=== PATIENT | male | born 1935 | race Caucasian/White ===

== ENCOUNTER 2018-01-18 13:46 | Observation (INO) | payer MEDICARE ==
[2018-01-18 14:17] LABS: #Basophils 0.1 thou/uL (0.0-0.2); #Eosinphils 0.1 thou/uL (0.0-0.7); #Lymphocytes 1.5 thou/uL (1.20-3.40); #Monocytes 0.7 thou/uL (0.11-0.59); #Neutrophils 3.6 thou/uL (1.40-6.50); %Eosinophils 1.1 % (0.0-10.0); %Lymphocytes 25.4 % (21.0-51.0); %Monocytes 11.4 % (0.0-10.0); %Neutrophils 61.1 % (42.0-75.0); Hemoglobin 15.3 g/dL (14.0-18.0); Mean Corpuscular HGB CONC 35.2 g/dL (32.0-36.0); Mean Corpuscular Volume 90.8 fL (78.0-98.0); Mean Platelet Volume 7.7 fL (7.4-10.4); Platelet Count 134 thou/uL (130-400); RBC Distribution Width 12.1 % (11.5-14.5); Red Blood Cell (RBC) Count 4.78 mill/uL (4.70-6.10); White Blood Cell (WBC) Count 5.9 thou/uL (4.8-10.8)
[2018-01-18 14:37] LABS: ALT (SGPT) 21 U/L (8-55); AST (SGOT) 16 U/L (5-34); Albumin 3.9 g/dL (3.4-4.8); Alkaline Phosphatase 87 U/L (40-150); Anion Gap 13 mmol/L (10-20); BUN (Urea Nitrogen) 22 mg/dL (8.4-25.7); Bilirubin, Total 0.4 mg/dL (0.2-1.2); Calc. Creatinine Clearance 0 mL/min (70-130); Calcium 9.2 mg/dL (7.8-10.44); Carbon Dioxide 23 mmol/L (23-31); Chloride 107 mmol/L (98-107); Estimated GFR-MDRD 85; Globulin 2.6 g/dL (2.4-3.5); Glucose 96 mg/dL (83-110); Potassium 4.6 mmol/L (3.5-5.1); Protein, Total 6.5 g/dL (5.8-8.1); Sodium 138 mmol/L (136-145)
--- NOTE | 2018-01-18 15:47 | CT ---
CT BRAIN WITHOUT CONTRAST: HISTORY: Left-sided weakness and numbness. FINDINGS: No evidence of infarct, hemorrhage, midline shift, or abnormal extraaxial fluid collections is seen. The ventricular size is appropriate and the basilar cisterns are patent. The bony calvarium is inta ct. There is mucosal disease in the right maxillary sinus. IMPRESSION: No CT evidence of acute intracranial process. POS: [facility]
[2018-01-18] MEDS ORDERED: Ondansetron HCl/PF 4 MG/2 ML Vial IVP PRN ×2 (16:34→16:45)
[2018-01-18] MEDS ORDERED: Acetaminophen 325 MG TAB PO PRN ×2 (16:34→16:45)
[2018-01-18] MEDS ORDERED: Ondansetron ODT 4 MG TAB SL PRN (16:34)
[2018-01-18] MEDS ORDERED: hydrALAZINE 20 MG/ML VIAL SLOW IVP PRN (16:45)
[2018-01-18] MEDS ORDERED: Senokot 8.6 MG TAB PO PRN (16:45)
[2018-01-18] MEDS ORDERED: Eucerin (Mineral Oil/Petrolatum,White) 30 gm Jar TOP PRN (16:45)
[2018-01-18] MEDS ORDERED: HYDROcodone/Acetaminophen 5/325 mg Tablet PO PRN (16:45)
[2018-01-18] MEDS ORDERED: Loperamide HCl 2 MG CAP PO PRN (16:45)
[2018-01-18] MEDS ORDERED: Diabetic Tussin 200 MG/10 ML UDCUP PO PRN (16:45)
[2018-01-18] MEDS ORDERED: Chloraseptic Spray 180 ml Bottle PO PRN (16:45)
[2018-01-18] MEDS ORDERED: Ondansetron ODT 4 MG TAB PO PRN (16:45)
[2018-01-18] MEDS ORDERED: Loratadine 10 MG TAB PO PRN (16:45)
[2018-01-18] MEDS ORDERED: Zolpidem Tartrate 5 MG TAB PO PRN (16:45)
[2018-01-18] MEDS ORDERED: Artificial Tears 18 DROP/0.9 ML EA EYE PRN (16:45)
[2018-01-18] MEDS ORDERED: Sodium Chloride 0.65% Nasal 44 ML BOT EA NARE PRN (16:45)
[2018-01-18] MEDS ORDERED: Milk Of Magnesia 30 ML UDCUP PO PRN (16:45)
[2018-01-18] MEDS ORDERED: Famotidine 20 MG TAB PO PRN (16:45)
[2018-01-18] MEDS ORDERED: Mag-Al 1200 mg/1200 mg/30 ML UDCUP PO PRN (16:45)
[2018-01-18 17:27] VITALS: BMI 29.1
--- NOTE | 2018-01-18 17:41 | HP ---
PRIMARY CARE PHYSICIAN: Dr. Fabien Mckeon. REASON FOR ADMISSION: TIA. HISTORY OF PRESENT ILLNESS: An 82-year-old male who has underlying history of hypothyroidism, who pr esented to emergency room with complaint of left-sided heaviness. The patient reports that around 1: 30 p.m., he was at home and resting and all of suddenly he felt that his left side got numb and left lower extremity got very heavy and he was feeling a little bit weak on that side. His daughter was a t home who called paramedics and when the patient came to emergency room, by that time all symptoms m ostly resolved. He did not have any associated chest pain, palpitation, dizziness or syncope. He de nies any headache. He denies any nausea, vomiting, diplopia or blurred vision. He denies any speech problem. He did not have any difficulty swallowing. He reports that about a week ago, he exactly f elt similar symptoms, but it was resolved very quickly and that is why he did not go to the emergency room for evaluation. He reports that he had full regular checkup recently by primary care physician , which was normal. When he came to the emergency room, at that time, the patient was hypertensive. When I saw this patient, at that time, the patient was completely asymptomatic. His symptoms comple tely resolved and we are admitting this patient for stroke workup. The patient has history of underl dedrick hypothyroidism and borderline diabetes. REVIEW OF SYSTEMS: The following complete review of systems was negative, unless otherwise mentioned in the HPI or below: Constitutional: Weight loss or gain, ability to conduct usual activities. Sk in: Rash, itching. Eyes: Double vision, pain. ENT/Mouth: Nose bleeding, neck stiffness, pain, te nderness. Cardiovascular: Palpitations, dyspnea on exertion, orthopnea. Respiratory: Shortness of breath, wheezing, cough, hemoptysis, fever or night sweats. Gastrointestinal: Poor appetite, abdom inal pain, heartburn, nausea, vomiting, constipation, or diarrhea. Genitourinary: Urgency, frequenc y, dysuria, nocturia. Musculoskeletal: Pain, swelling. Neurologic/Psychiatric: Anxiety, depressio n. Allergy/Immunologic: Skin rash, bleeding tendency. Please see my HPI for pertinent positive and negative. All other review of system reviewed and negative except as mentioned in the HPI. PAST MEDICAL HISTORY: Hypothyroidism, borderline diabetes, but not on any medication. ALLERGIES: No known drug allergy. CURRENT HOME MEDICATIONS: Levothyroxine daily, dose not known. PAST SURGICAL HISTORY: The patient had a meniscal surgery on the right knee. The patient had eye pinzon rgery for cataract and glaucoma as well as LASIK surgery. PAST PSYCHIATRIC HISTORY: Reviewed and negative. SOCIAL HISTORY: The patient lives at home with his . No history of tobacco, alcohol. He drinks occasionally. He denies any other illicit drug abuse. He works in a household work. FAMILY HISTORY: No strong family history of premature coronary artery disease, stroke or cancer. EMERGENCY ROOM COURSE: The patient is given aspirin 325 mg. PHYSICAL EXAMINATION: VITAL SIGNS: On arrival, blood pressure 187/92, pulse 54, respiratory rate 18, temperature 98.4, sat uration 97% on room air, weight 92.9 kilograms. GENERAL: The patient is currently alert, awake, hypertensive, no obvious acute distress. HEAD: Normocephalic, atraumatic. EYES: Pupils round, reactive to light. Extraocular muscle intact. ENT: Oropharynx within normal limits. Moist mucous membranes. No oral lesion, no pharyngeal erythe ma, no exudate. NECK: Supple, no JVD, no thyromegaly, no carotid bruit. LUNGS: Clear to auscultation without any rhonchi or rales. CARDIAC: S1, S2 regular. No murmur, no gallop, no rub. ABDOMEN: Soft, bowel sounds present, nontender, nondistended. No organomegaly, no mass, no suprapub ic tenderness. BACK: Unremarkable, no CVA tenderness. EXTREMITIES: Upper extremity: Passive movement of all joints are normal. Lower extremity: Passive movement of all joints are normal. No edema. Good distal pulsation. SKIN: No skin rash. HEMATOLOGICAL SYSTEM: No lymphadenopathy. PSYCHIATRIC: Normal affect. NEUROLOGIC: The patient is alert and oriented x3. Cranial nerves II-XII intact. Speech, normal. M otor 5/5 in all four limbs. Sensation bilaterally symmetrical. Reflexes normal. No cerebellar sign . Plantar bilateral flexor. SIGNIFICANT LABORATORY DATA AND IMAGING: EKG showing sinus bradycardia, no acute ischemic changes. CT brain based on my review, no acute intracranial process. CBC: WBC 5.9, hemoglobin 15.3, platelet 134. BMP: Sodium 138, potassium 4.6, chloride 107, carbon dioxide 23, anion gap 13, BUN 22, creati nine 0.86, glucose 96, calcium 9.2. LFT: AST 16, ALT 21, alkaline phosphatase 87, albumin 3.9. ASSESSMENT AND PLAN: 1. Transient ischemic attack. The patient's clinical presentation of acute left-sided numbness as w ell as heaviness sensation on both upper and lower extremity, which was rapidly resolved to normal co nsistent with a TIA. The patient also had similar problem about a week ago. This patient will need observation to stroke floor. We will do neuro check. We will obtain MRI brain, carotid Doppler and echocardiography as a part of workup. We will check TSH, hemoglobin A1c, lipid profile and homocyste ine tomorrow. We will start lisinopril 5 mg p.o. daily, Lipitor 40 mg p.o. at bedtime and monitor on telemetry floor. 2. Borderline diabetes. Check hemoglobin A1c tomorrow. 3. Hypothyroidism. Resume patient's home medication Synthroid daily in the morning. 4. Hypertension without previous history of hypertension. We are starting lisinopril 5 mg p.o. ben y and monitor blood pressure while in hospital. 5. Deep venous thrombosis prophylaxis, Lovenox 40 mg subcu daily. 6. Gastrointestinal prophylaxis, Pepcid 20 mg p.o. b.i.d. 7. Code status: The patient is FULL CODE. The patient's is surrogate decision maker. Disposition plan based on clinical course, likely within 24 hours. Plan of care discussed with the p atient and patient's at bedside in the emergency room.
--- NOTE | 2018-01-18 18:52 | ULT ---
CAROTID ATERIAL DOPPLER ULTRASOUND: Date: 01-18-18 Comparison: None. History: Transient ischemic attack. Assess for carotid artery disease. Technique: Multiplanar grayscale sonographic imaging of the arterial structures of the neck obtained with color flow and spectral analysis. FINDINGS: Mild atherosclerotic plaque noted at the proximal right ICA. Antegrade blood flow and normal waveform s are documented within the carotid and vertebral system bilaterally. VESSEL PSV (cm/sec) EDV (cm/sec) Right CCA 77 14 Right ICA 53 13 Right ECA 42 6 Left CCA 75 11 Left ICA 72 44 Left ECA 33 3 ICA/CCA ratio is 0.7 on the right and 2.3 on the left. IMPRESSION: Elevated velocity within the left internal carotid artery correlates with a moderate degree of stenos is (50-69%). Stenosis could be best assessed via CT angiograph of the neck. POS: [facility]
[2018-01-18] MEDS ORDERED: Atorvastatin Calcium 40 MG TAB PO SCH (21:00)
[2018-01-18 22:50] LABS: Bilirubin Negative (Negative); Blood, Urine Negative (Negative); Clarity CLEAR (Clear); Glucose, Urine (Dipstick) Negative (Negative); Leukocyte Negative (Negative); Nitrite Negative (Negative); Protein, Urine (Dipstick) Negative (Neg-Trace); Urobilinogen 0.2 mg/dL (0.2-1.0); pH, Urine 5.5 (5.0-9.0)
[2018-01-18 22:52] LABS: Bacteria/HPF None Seen HPF (None Seen); Hyaline Casts/LPF 0-3 HYALINE CAST LPF (0-3 Hyaline); RBC/HPF 0-3 HPF (0-3); Squamous Epithelial None Seen HPF (0-3); WBC/HPF 0-3 HPF (0-3)
[2018-01-19 05:15] LABS: Hemoglobin A1c 5.3 % (4.0-6.0)
[2018-01-19 05:22] LABS: Cardiac Risk 3.8 (Less than 4.5)
[2018-01-19] MEDS ORDERED: Fluticasone Propionate Nasal Spray 16 gm Bottle NASAL PRN (07:34)
[2018-01-19] MEDS ORDERED: Enoxaparin Sodium 40 MG/0.4 ML SYRINGE SC SCH (09:00)
[2018-01-19] MEDS ORDERED: Tamsulosin HCl 0.4 MG CAP PO SCH (09:00)
[2018-01-19] MEDS ORDERED: Vit A,C & E/Lutein/Minerals Tablet PO SCH (09:00)
[2018-01-19] MEDS ORDERED: Non-Formulary Item 1 EACH (Vit C/Vit E/Lutein/Min/Omega-3 [Ocuvite Softgel] 1 CAP) PO SCH (09:00)
[2018-01-19] MEDS ORDERED: FLUoxetine HCl 20 MG CAP PO SCH (09:00)
[2018-01-19] MEDS ORDERED: Lisinopril 5 MG TAB PO SCH (09:00)
[2018-01-19] MEDS ORDERED: Aspirin 325 mg Enteric Coated Tablet PO SCH (09:00)
[2018-01-19] MEDS ORDERED: Levothyroxine Sodium 112 MCG TAB PO SCH (09:00)
--- NOTE | 2018-01-19 09:33 | MRI ---
MRI BRAIN WITHOUT CONTRAST: HISTORY: TIA. COMPARISON: CT brain from the previous day. FINDINGS: No restricted diffusion is seen. No evidence of infarct, hemorrhage, midline shift, or abnormal extr aaxial fluid collections is noted. The ventricular size is appropriate, and the basilar cisterns are patent. Changes of mild chronic small vessel ischemic disease are present. There is mild mucosal d isease in the paranasal sinuses. IMPRESSION: No evidence of acute intracranial process. POS: [facility]
[2018-01-19] MEDS ORDERED: Iopamidol 370 76% 100 ML VIAL ONE (10:45)
[2018-01-19] MEDS: Fluticasone Propionate HFA 110 MCG AER INH SCH ×2 (11:17→11:20)
[2018-01-19 11:29] VITALS: TEMP 98.1
--- NOTE | 2018-01-19 12:10 | CT ---
CT ARTERIOGRAM NECK WITH IV CONTRAST AND 3D MIP IMAGING: HISTORY: CVA. Atherosclerosis. Abnormal sonogram. FINDINGS: Minimal atherosclerotic calcification at the aortic arch and great vessels, with a bovine origin of t he great vessels. Good flow into each common carotid and vertebral artery. On the left, noncalcified plaque in the proximal to mid ICA results in a short segment focus of high grade stenosis, estimated at 80%. Good flow within the internal carotid artery beyond this point. Good flow and diameter of the right carotid and left external carotid arteries. Mild calcification a t the right carotid bifurcation. IMPRESSION: Mild atherosclerosis. Significant stenosis limited to the proximal to mid left cervical internal car otid artery, estimated at 80%. POS: [facility]
--- NOTE | 2018-01-19 13:38 | DIS ---
DATE OF ADMISSION: 01/18/2018 DATE OF DISCHARGE: 01/19/2018 PRIMARY CARE PHYSICIAN: Dr. Mike Conn. DISCHARGE DISPOSITION: Home. PRIMARY DISCHARGE DIAGNOSES: 1. Transient ischemic attack. 2. Left internal carotid artery stenosis. SECONDARY DISCHARGE DIAGNOSES: Hypertension, dyslipidemia, asymptomatic sinus bradycardia, anxiety and depression, benign enlargement of prostate, gastroesophageal reflux disease, hypothyroidism. PRIMARY PROCEDURE/OPERATION: None. RADIOLOGICAL INVESTIGATION: CT brain negative for any acute intracranial process. MRI brain normal. Carotid Doppler showed carotid stenosis on the left side and CT angiography also showed proximal to mid left internal carotid artery stenosis. Echocardiography showed diastolic dysfunction. SIGNIFICANT LABORATORY DATA: WBC 5.9, hemoglobin 15.3, platelet 134. Sodium 138, potassium 4.6, BUN 22, creatinine 0.86, calcium 9.2, hemoglobin A1c 5.3. LFT normal, LDL 105, TSH 0.36. Homocysteine 6.43. Urinalysis normal. DISCHARGE MEDICATIONS: Aspirin 325 mg p.o. daily, lisinopril 5 mg p.o. daily, Lipitor 10 mg p.o. at bedtime, Ocuvite 1 capsule p.o. daily, Flomax 0.4 mg p.o. daily, omeprazole 40 mg p.o. daily, Synthroid 112 mcg p.o. daily, Flonase nasal spray p.r.n., Flovent inhalation daily, Prozac 20 mg p.o. daily, Candi 180 mg p.o. daily. Plavix 75 mg po daily. CONTRAINDICATIONS: None. CODE STATUS: FULL CODE. INPATIENT TRANSFER SPECIALIST: Dr. Murillo was consulted for carotid stenosis. TEST RESULTS PENDING ON DISCHARGE: None. ALLERGIES: No known drug allergy. DISCHARGE PLAN: Post hospital, the patient is instructed to follow up with Dr. Murillo as well as primary care physician in 1 week. HOSPITAL COURSE: An 82-year-old male with above-mentioned medical problem who was admitted by me yesterday. Please see my HPI for further detail. The patient was admitted for left-sided heaviness and left-sided numbness. This is second time happened within a week and that is why we admitted him to the hospital. The patient was observed on the stroke floor. When he presented to the ER, his symptoms completely resolved. His CT brain was normal. His MRI brain was also normal. Carotid Doppler showed left-sided carotid stenosis and that is why we did CT angiography that also showed proximal to mid left internal carotid artery stenosis. For further evaluation and treatment, we consulted Cardiovascular surgeon before discharge. Official recommendation from cardiovascular surgeon is pending by the time of dictation. During this admission, we started Lipitor and lisinopril for his dyslipidemia and hypertension. Rest of medication was continued as per previous. The patient is also instructed to take a full dose of aspirin from baby aspirin which he was taking prior to arrival to the hospital. At this point, patient is neurologically completely normal. The patient is seen and examined at bedside today. He has sinus bradycardia, but he is asymptomatic and he is not on any beta tomy or any AV pool blocking agent. The patient is advised to monitor his vitals and he is also advised to follow up with Cardiology as an outpatient basis. The patient is seen and examined at bedside today. PHYSICAL EXAMINATION: VITAL SIGNS: Currently, temperature 97.9, pulse 50, respiratory rate 18, saturation 96% on room air, blood pressure 154/75, weight 203 pounds. GENERAL: The patient is currently alert, awake, no obvious acute distress. HEAD: Normocephalic, atraumatic. EYES: Pupils round, reactive to light. Extraocular muscle intact. ENT: Oropharynx within normal limits. Moist mucous membranes. No oral lesion , no pharyngeal erythema, no exudate. NECK: Supple, no JVD, no thyromegaly, no carotid bruit. LUNGS: Clear to auscultation without any rhonchi or rales. CARDIAC: S1 and S2 regular without any murmur. ABDOMEN: Soft and benign without any tenderness. EXTREMITIES: No edema. NEUROLOGIC: Nonfocal examination. Overall, patient is medically stable for discharge today. Cardiovascular surgeon will follow pt after discharge and recommended to add plavix, prescription was sent to pharmacy. [facility]
--- NOTE | 2018-01-19 15:08 | CON ---
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 He has had 2 episodes of lightheadedness associated with some left arm and leg heavi ness or numbness. Primarily it involves his leg and that he has difficulty ambulating. They have la sted only about 10 minutes. His workup has included an MRI of the brain which was negative. Echocar diogram showing normal left ventricular systolic function. Carotid Doppler and CT angiography showin g a high grade left internal carotid artery stenosis. The patient's home medicines included levothyr oxine daily. Since admission, he has had the addition or the increase of aspirin from 81 to 325 and the addition of Lipitor and lisinopril to his medical regimen. His EKG in the hospital was normal; h gemma, on telemetry monitoring his heart rates have been in the with a single 2.1 second pause. PAST MEDICAL HISTORY: Includes only hypothyroidism. PAST SURGICAL HISTORY: Includes right knee surgery as well as cataract surgery. SOCIAL HISTORY: He has never smoked. As mentioned, he is a retired synthetic chemist, works around the house. REVIEW OF SYSTEMS: The patient has no chest pain or tightness. He has had no history of claudicatio n. He has nocturia x1 or occasionally 2. He has no GI complaints except for occasional heartburn. PHYSICAL EXAMINATION: GENERAL: He is an alert, cooperative gentleman. VITAL SIGNS: Recorded height 5 feet 10 inches, recorded weight of 203. NECK: Mild limitation in neck extension. No carotid bruits. LUNGS: Clear to auscultation. CARDIAC: Distant heart sounds, no murmurs. ABDOMEN: Soft, nontender. No aneurysm, no organomegaly. EXTREMITIES: He has palpable radial and posterior tibial pulses bilaterally with mild ankle edema bi laterally. NEUROLOGIC: Normal at this time. PLAN: I have discussed the findings of severe left internal carotid artery stenosis and that this is unlikely to have a candidate for any of his presenting symptoms. He has no significant right-sided disease to account for his left-sided heaviness or weakness. The only finding of interest at this ti me would be his sinus bradycardia and occasional sinus pause and this could account for his lighthead edness. I have recommended left carotid endarterectomy and informed consent has been obtained.
[2018-01-19 15:50] VITALS: BP 139/73
[2018-01-19] MEDS ORDERED: Clopidogrel Bisulfate 75 MG TAB PO SCH (17:45)
[2018-01-19] MEDS ORDERED: Mometasone 100 MCG HFA INHALER INH SCH (18:30)
[2018-01-19] MEDS ORDERED: Atorvastatin Calcium 10 MG TAB PO SCH (21:00)
[2018-01-20] MEDS ORDERED: Clopidogrel Bisulfate 75 MG TAB PO SCH (09:00)
--- NOTE | 2018-01-24 11:38 | EKG ---
Test Reason : WEAKNESS Blood Pressure : / mmHG Vent. Rate : 054 BPM Atrial Rate : 054 BPM P-R Int : 204 ms QRS Dur : 088 ms QT Int : 428 ms P-R-T Axes : 028 014 009 degrees QTc Int : 405 ms Sinus bradycardia Otherwise normal ECG No ST elevation/NC Confirmed by DARREN ARTHUR DO ([id number]), non linear editor MANOJ TADEO ([id number]) on 01/24/2018 11:38:43 AM Referred By: SANDHYA Confirmed By:DARREN ARTHUR DO
== END 2018-01-19 18:16 | disposition home or self-care (01) ==
LOC: ERS 13:46 → 2SE 15:19
PROVIDERS: ADMIT Internal Medicine; ATTEND Internal Medicine
DX: I65.22 Occlusion and stenosis of left carotid artery (principal); E03.9 Hypothyroidism, unspecified; R73.03 Prediabetes; I10 Essential (primary) hypertension; F41.8 Other specified anxiety disorders; N40.0 Benign prostatic hyperplasia without lower urinary tract symptoms; K21.9 Gastro-esophageal reflux disease without esophagitis; Z79.899 Other long term (current) drug therapy
CPT/HCPCS: 70450; 70498; 70551; 80053; 80061; 81001; 83036; 83090; 84443; 85025; 93005; 93306; 93880; 94760; 96372; 99285; G0378 ×2; 36415; J1650

== ENCOUNTER 2018-03-03 12:45 | Outpatient (CLI) | payer MEDICARE ==
--- NOTE | 2018-03-03 14:39 | RAD ---
CHEST PA AND LATERAL: History: 82-year-old male with history of dyspnea. FINDINGS: Heart size is within normal limits. The lungs are clear. No confluent pneumonia, overt edema, or pleu ral effusion. IMPRESSION: No significant acute intrathoracic disease. Old granulomatous disease. POS: [facility]
== END 2018-03-03 12:46 | disposition home or self-care (01) ==
LOC: RAD 12:45
PROVIDERS: ATTEND Internal Medicine Pulmonary Disease
DX: R06.00 Dyspnea, unspecified (principal); D71 Functional disorders of polymorphonuclear neutrophils
CPT/HCPCS: 71046